=== PATIENT | male | born 1975 | race Hispanic/Latino ===

== ENCOUNTER 2022-02-21 09:52 | Emergency (ER) | payer BC ==
[~2022-02-21] VITALS: Ht 162.6 cm; Wt 68.0 kg
[2022-02-21 10:00] VITALS: BP 133/87
[2022-02-21] MEDS ORDERED: IOHEXOL 350 MG/ML 100ML INFUS..BTL IV ONE (10:13)
[2022-02-21 10:20] LABS: BASOPHILS % (AUTO) 0.4 % (0.0-5.0); EOSINOPHILS % (AUTO) 0.2 % (0.0-8.0); HEMATOCRIT 40.2 % (42-54); LYMPHOCYTES % (AUTO) 31.8 % (21.0-51.0); MEAN CORPUSCULAR HEMOGLOBIN 30.8 pg (27.0-33.0); MEAN CORPUSCULAR HGB CONC 34.6 g/dL (32.0-36.0); MEAN CORPUSCULAR VOLUME 89.1 fL (79-99); MONOCYTES % (AUTO) 6.3 % (3.0-13.0); NEUTROPHILS % (AUTO) 61.1 % (40.0-77.0); PLATELET COUNT (AUTO) 271 K/uL (130-400); RED BLOOD CELL COUNT(AUTO) 4.51 MIL/uL (4.50-6.20); RED CELL DISTRIBUTION WIDTH 12.1 % (11.0-15.5); WHITE BLOOD COUNT (AUTO) 9.1 K/uL (4.8-10.8)
[2022-02-21 10:29] LABS: POTASSIUM 3.9 mmol/L (3.5-5.1)
[2022-02-21 10:34] LABS: ALBUMIN 4.1 g/dL (3.5-5.0); TOTAL PROTEIN, SERUM 7.9 g/dL (6.0-8.3)
[2022-02-21] MEDS ORDERED: MORPHINE 2 MG SYG IVP ONE (11:00)
[2022-02-21] MEDS ORDERED: ONDANSETRON 4MG INJ IVP ONE (11:00)
[2022-02-21] MEDS ORDERED: TETANUS/DIPHTHERIA TOXOID [ADULT] 0.5 ML VIAL IM ONE (11:30)
[2022-02-21] MEDS ORDERED: CEFTRIAXONE 1G VIAL IVP ONE (11:30)
[2022-02-21 11:57] LABS: APPEARANCE,URINE CLEAR (CLEAR); BILIRUBIN,URINE NEGATIVE (NEGATIVE); COLOR,URINE LIGHT-YELLOW (YELLOW); GLUCOSE, URINE (UA) NEGATIVE (NEGATIVE); KETONES,URINE NEGATIVE (NEGATIVE); LEUKOCYTE ESTERASE ,URINE NEGATIVE Leu/uL (NEGATIVE); MUCUS,URINE RARE LPF (None Seen); NITRATE,URINE NEGATIVE (NEGATIVE); OCCULT BLOOD,URINE NEGATIVE (NEGATIVE); PH,URINE 5.5 (5.0-8.0); PROTEIN,URINE NEGATIVE (NEGATIVE); UROBILINOGEN,URINE 0.2 mg/dL (0.2-1.0); WBC,URINE 0-1 /HPF (0-1)
[2022-02-21] MEDS ORDERED: CEPH500B PO (13:24)
[2022-02-21] MEDS ORDERED: PRED5SOL PO (13:24)
== END 2022-02-21 14:15 | disposition home or self-care (01) ==
LOC: EDH 09:52
DX: S02.32XA Fracture of orbital floor, left side, initial encounter for closed fracture (principal); S01.81XA Laceration without foreign body of other part of head, initial encounter; S52.502A Unspecified fracture of the lower end of left radius, initial encounter for closed fracture; Z79.52 Long term (current) use of systemic steroids; Z79.899 Other long term (current) drug therapy; W11.XXXA Fall on and from ladder, initial encounter; Y93.89 Activity, other specified; Y92.89 Other specified places as the place of occurrence of the external cause; Y99.8 Other external cause status
CPT/HCPCS: 99285; 70450; 12052; 96374; 71045; 96375; 82550; 84484; 80053; 85025; 81001; 36415; 90714; 73100; 72125; 71260; 70486; 74177; 90471; J0696; J2405; Q9967